=== PATIENT | male | born 1930 | race African-American/Black ===

== ENCOUNTER 2019-03-21 15:14 | Inpatient (IN) | payer MEDICARE, BC ==
[~2019-03-21] VITALS: Ht 172.7 cm; Wt 67.2 kg
[2019-03-21 23:39] LABS: HEMATOCRIT. 28.1 % (42.0-52.0); HEMOGLOBIN. 8.6 g/dL (14.0-18.0); MEAN CORPUSCULAR HEMOGLOBIN 25.6 pg (28.0-32.0); MEAN CORPUSCULAR VOLUME 83.4 fL (80.0-94.0); MEAN PLATELET VOLUME 7.2 fl (7.4-10.4); PLATELET 247 x1000/uL (130-400); RED BLOOD CELL COUNT 3.38 mill/uL (4.7-6.1); RED CELL DISTRIBUTION WIDTH 27.3 % (11.6-14.6)
[2019-03-21 23:45] LABS: CHLORIDE 118 mEq/L (98-107)
[2019-03-22 03:00] VITALS: BP 144/66
[2019-03-22 05:15] LABS: PLATELET ESTIMATE NORMAL
[2019-03-22 08:00] VITALS: BP 146/70
[2019-03-22] MEDS: FUROSEMIDE 40MG/4ML VIAL IVP SCH ×3 (08:11→21:00)
[2019-03-22] MEDS ORDERED: APIX5TAB PO (10:35)
[2019-03-22] MEDS ORDERED: FLUD0.1T PO (10:35)
[2019-03-22] MEDS ORDERED: PRIM50TA31 PO (10:35)
[2019-03-22] MEDS ORDERED: OMEP40CA12 PO (10:35)
[2019-03-22] MEDS ORDERED: FURO-151 PO (10:35)
[2019-03-22] MEDS ORDERED: AMLO5TAB88 PO (10:35)
[2019-03-22] MEDS ORDERED: FINA5TAB11 PO (10:35)
[2019-03-22] MEDS ORDERED: FOLI0.8T23 PO (10:35)
[2019-03-22] MEDS ORDERED: SITA50TA3 PO (10:35)
[2019-03-22] MEDS ORDERED: TAMS-11 PO (10:35)
[2019-03-22] MEDS ORDERED: ROSU5TAB PO (10:35)
[2019-03-22] MEDS ORDERED: LOPE2CAP PO (10:35)
[2019-03-22 12:00] VITALS: BP 143/70
[2019-03-22 13:40] LABS: INR 1.4; PROTHROMBIN TIME 13.9 sec (9.6-11.0)
[2019-03-22 14:00] LABS: TOTAL IRON BINDING CAPACITY 123 ug/dL (250-450)
[2019-03-22 16:00] VITALS: BP 144/63
[2019-03-22 20:00] VITALS: BP 139/67
[2019-03-22] MEDS: ATORVASTATIN CALCIUM 10MG TABLET PO SCH (20:59)
[2019-03-22] MEDS: EPOETIN ALFA 10000UNITS/ML VIAL SUBCUT SCH (20:59)
[2019-03-23] VITALS (8 sets, daily range): BP systolic 108–169; BP diastolic 36–70
[2019-03-23] MEDS: FUROSEMIDE 40MG/4ML VIAL IVP SCH ×3 (06:48→22:18)
[2019-03-23 07:28] LABS: HEMATOCRIT. 22.9 % (42.0-52.0); HEMOGLOBIN. 7.2 g/dL (14.0-18.0); MEAN CORPUSCULAR HEMOGLOBIN 25.3 pg (28.0-32.0); MEAN CORPUSCULAR VOLUME 80.7 fL (80.0-94.0); MEAN PLATELET VOLUME 7.9 fl (7.4-10.4); PLATELET 171 x1000/uL (130-400); RED BLOOD CELL COUNT 2.84 mill/uL (4.7-6.1); RED CELL DISTRIBUTION WIDTH 27.1 % (11.6-14.6)
[2019-03-23 07:49] LABS: PHOSPHORUS 1.9 mg/dL (2.5-4.9)
[2019-03-23 08:13] LABS: HEPATITIS B SURFACE ANTIGEN NEGATIVE
[2019-03-23] MEDS: FLUDROCORTISONE ACETATE 0.1MG TABLET PO SCH (08:50)
[2019-03-23] MEDS: AMLODIPINE 5MG TABLET PO SCH (08:51)
[2019-03-23] MEDS: FOLIC ACID/VITAMIN B COMP W-C TABLET PO SCH (08:51)
[2019-03-23] MEDS: TAMSULOSIN HCL 0.4MG SR CAPSULE PO SCH (08:51)
[2019-03-23] MEDS: FINASTERIDE 5MG TABLET PO SCH (08:51)
[2019-03-23] MEDS ORDERED: POTASSIUM-SODIUM PHOSPHATE POWDER PACKET PO SCH (12:30)
[2019-03-23] MEDS ORDERED: CALCIUM GLUCONATE 1,000 MG in DEXT 5% WATER 90 ML IV SCH (14:00)
[2019-03-23] MEDS ORDERED: MAGNESIUM 2 G PREMIX 50 ML IV SCH (14:00)
[2019-03-23] MEDS: MEGESTROL ACETATE 400 MG/10 ML UDC PO SCH (15:54)
[2019-03-23] MEDS: DEXT 5%/0.45% NACL 1000ML 1,000 ML IV SCH (15:55)
[2019-03-23] MEDS: ATORVASTATIN CALCIUM 10MG TABLET PO SCH (22:18)
[2019-03-24] VITALS: BP 129/68
[2019-03-24 04:00] VITALS: BP 123/69
[2019-03-24] MEDS: FUROSEMIDE 40MG/4ML VIAL IVP SCH ×3 (05:01→21:25)
[2019-03-24 05:54] LABS: BASOPHILS % 0.4 % (0.0-2.0); EOSINOPHILS % 0.8 % (0.0-5.0); HEMATOCRIT. 23.6 % (42.0-52.0); HEMOGLOBIN. 7.4 g/dL (14.0-18.0); MEAN CORPUSCULAR HEMOGLOBIN 25.5 pg (28.0-32.0); MONOCYTES % 10.2 % (2.0-8.0); NEUTROPHILS % 53.6 % (40.0-76.0); PLATELET 229 x1000/uL (130-400); RED BLOOD CELL COUNT 2.92 mill/uL (4.7-6.1); RED CELL DISTRIBUTION WIDTH 26.5 % (11.6-14.6)
[2019-03-24 08:00] VITALS: BP 147/69
[2019-03-24 08:15] LABS: PLATELET ESTIMATE NORMAL
[2019-03-24] MEDS: FINASTERIDE 5MG TABLET PO SCH (09:52)
[2019-03-24] MEDS: FOLIC ACID/VITAMIN B COMP W-C TABLET PO SCH (09:52)
[2019-03-24] MEDS: AMLODIPINE 5MG TABLET PO SCH (09:53)
[2019-03-24] MEDS: MEGESTROL ACETATE 400 MG/10 ML UDC PO SCH (09:53)
[2019-03-24] MEDS: FLUDROCORTISONE ACETATE 0.1MG TABLET PO SCH (09:53)
[2019-03-24] MEDS: TAMSULOSIN HCL 0.4MG SR CAPSULE PO SCH (09:54)
[2019-03-24 12:00] VITALS: BP 148/69
[2019-03-24] MEDS: LEVOFLOXACIN 250MG TABLET PO SCH (13:28)
[2019-03-24] MEDS: IRON SUCROSE COMPLEX 100 MG/5 ML ML IV SCH (13:28)
[2019-03-24 14:03] LABS: PLATELET ESTIMATE NORMAL
[2019-03-24 15:52] LABS: PHOSPHORUS 2.9 mg/dL (2.5-4.9)
[2019-03-24 17:08] VITALS: BP 141/66
[2019-03-24 20:00] VITALS: BP_SYST 119; BP_SYST 125; BP_DIAS 52; BP_DIAS 58
[2019-03-24] MEDS: ATORVASTATIN CALCIUM 10MG TABLET PO SCH (21:25)
[2019-03-25] VITALS: BP 119/58
[2019-03-25 04:00] VITALS: BP 124/55
[2019-03-25] MEDS: FUROSEMIDE 40MG/4ML VIAL IVP SCH ×3 (05:30→22:18)
[2019-03-25] MEDS: DEXT 5%/0.45% NACL 1000ML 1,000 ML IV SCH (05:30)
[2019-03-25 07:30] LABS: BASOPHILS % 0.1 % (0.0-2.0); HEMATOCRIT. 27.8 % (42.0-52.0); HEMOGLOBIN. 8.5 g/dL (14.0-18.0); LYMPHOCYTES % 27.5 % (20.0-50.0); MEAN CORPUSCULAR HEMOGLOBIN 24.8 pg (28.0-32.0); MEAN CORPUSCULAR VOLUME 81.6 fL (80.0-94.0); MEAN PLATELET VOLUME 7.9 fl (7.4-10.4); MONOCYTES % 8.1 % (2.0-8.0); NEUTROPHILS % 64.3 % (40.0-76.0); PLATELET 253 x1000/uL (130-400); RED BLOOD CELL COUNT 3.41 mill/uL (4.7-6.1); RED CELL DISTRIBUTION WIDTH 26.7 % (11.6-14.6)
[2019-03-25 08:01] VITALS: BP 158/76
[2019-03-25] MEDS: AMLODIPINE 5MG TABLET PO SCH (08:17)
[2019-03-25] MEDS: FOLIC ACID/VITAMIN B COMP W-C TABLET PO SCH (08:17)
[2019-03-25] MEDS: MEGESTROL ACETATE 400 MG/10 ML UDC PO SCH (08:17)
[2019-03-25] MEDS: FINASTERIDE 5MG TABLET PO SCH (08:17)
[2019-03-25] MEDS: IRON SUCROSE COMPLEX 100 MG/5 ML ML IV SCH (08:17)
[2019-03-25] MEDS: FLUDROCORTISONE ACETATE 0.1MG TABLET PO SCH (08:17)
[2019-03-25] MEDS: TAMSULOSIN HCL 0.4MG SR CAPSULE PO SCH (08:18)
[2019-03-25 12:00] VITALS: BP 136/67
[2019-03-25 16:00] VITALS: BP 113/57
[2019-03-25] MEDS ORDERED: ALBUMIN HUMAN 25GM/100ML (25%) IV NR (18:00)
[2019-03-25 20:00] VITALS: BP 113/65
[2019-03-25] MEDS: ATORVASTATIN CALCIUM 10MG TABLET PO SCH (22:18)
[2019-03-25] MEDS: EPOETIN ALFA 10000UNITS/ML VIAL SUBCUT SCH (22:18)
[2019-03-26] VITALS: BP 139/57
[2019-03-26 04:00] VITALS: BP_SYST 127; BP_SYST 134; BP_DIAS 56; BP_DIAS 61
[2019-03-26] MEDS: FUROSEMIDE 40MG/4ML VIAL IVP SCH ×3 (05:46→21:36)
[2019-03-26 08:00] VITALS: BP 147/65
[2019-03-26] MEDS: FLUDROCORTISONE ACETATE 0.1MG TABLET PO SCH (08:39)
[2019-03-26] MEDS: FINASTERIDE 5MG TABLET PO SCH (08:39)
[2019-03-26] MEDS: MEGESTROL ACETATE 400 MG/10 ML UDC PO SCH (08:39)
[2019-03-26] MEDS: FOLIC ACID/VITAMIN B COMP W-C TABLET PO SCH (08:39)
[2019-03-26] MEDS: IRON SUCROSE COMPLEX 100 MG/5 ML ML IV SCH (08:40)
[2019-03-26] MEDS: AMLODIPINE 5MG TABLET PO SCH (08:40)
[2019-03-26] MEDS: TAMSULOSIN HCL 0.4MG SR CAPSULE PO SCH (08:40)
[2019-03-26 10:57] LABS: BASOPHILS % 0.1 % (0.0-2.0); EOSINOPHILS % 0.1 % (0.0-5.0); HEMATOCRIT. 26.5 % (42.0-52.0); HEMOGLOBIN. 8.3 g/dL (14.0-18.0); LYMPHOCYTES % 29.3 % (20.0-50.0); MEAN CORPUSCULAR HEMOGLOBIN 25.6 pg (28.0-32.0); MEAN CORPUSCULAR VOLUME 81.6 fL (80.0-94.0); MEAN PLATELET VOLUME 7.5 fl (7.4-10.4); MONOCYTES % 10.8 % (2.0-8.0); NEUTROPHILS % 59.7 % (40.0-76.0); PLATELET 222 x1000/uL (130-400); RED BLOOD CELL COUNT 3.25 mill/uL (4.7-6.1); RED CELL DISTRIBUTION WIDTH 26.9 % (11.6-14.6)
[2019-03-26 11:38] LABS: PHOSPHORUS 2.5 mg/dL (2.5-4.9)
[2019-03-26 12:00] VITALS: BP 134/62
[2019-03-26] MEDS ORDERED: ALBUMIN HUMAN 25GM/100ML (25%) IV SCH (12:00)
[2019-03-26] MEDS: LEVOFLOXACIN 250MG TABLET PO SCH (13:51)
[2019-03-26] MEDS: DEXT 5%/0.45% NACL 1000ML 1,000 ML IV SCH (15:00)
[2019-03-26 16:00] VITALS: BP 129/60
[2019-03-26 20:00] VITALS: BP 149/66
[2019-03-26] MEDS: ATORVASTATIN CALCIUM 10MG TABLET PO SCH (21:36)
[2019-03-27] VITALS (7 sets, daily range): BP systolic 130–172; BP diastolic 62–86
[2019-03-27] MEDS: FUROSEMIDE 40MG/4ML VIAL IVP SCH ×3 (05:23→21:27)
[2019-03-27] MEDS: MEGESTROL ACETATE 400 MG/10 ML UDC PO SCH (10:03)
[2019-03-27] MEDS: AMLODIPINE 5MG TABLET PO SCH (10:04)
[2019-03-27] MEDS: FOLIC ACID/VITAMIN B COMP W-C TABLET PO SCH (10:04)
[2019-03-27] MEDS: FINASTERIDE 5MG TABLET PO SCH (10:04)
[2019-03-27] MEDS: TAMSULOSIN HCL 0.4MG SR CAPSULE PO SCH (10:04)
[2019-03-27] MEDS: FLUDROCORTISONE ACETATE 0.1MG TABLET PO SCH (10:05)
[2019-03-27] MEDS: DEXT 5%/0.45% NACL 1000ML 1,000 ML IV SCH (15:10)
[2019-03-27] MEDS: EPOETIN ALFA 10000UNITS/ML VIAL SUBCUT SCH (21:27)
[2019-03-27] MEDS: ATORVASTATIN CALCIUM 10MG TABLET PO SCH (21:28)
[2019-03-28] VITALS (7 sets, daily range): BP systolic 131–172; BP diastolic 65–89
[2019-03-28] MEDS: FUROSEMIDE 40MG/4ML VIAL IVP SCH ×3 (05:14→21:32)
[2019-03-28 07:37] LABS: BASOPHILS % 0.1 % (0.0-2.0); EOSINOPHILS % 0.4 % (0.0-5.0); HEMATOCRIT. 25.5 % (42.0-52.0); LYMPHOCYTES % 32.9 % (20.0-50.0); MEAN CORPUSCULAR HEMOGLOBIN 25.6 pg (28.0-32.0); MEAN CORPUSCULAR VOLUME 82.1 fL (80.0-94.0); MEAN PLATELET VOLUME 7.8 fl (7.4-10.4); MONOCYTES % 12.4 % (2.0-8.0); NEUTROPHILS % 54.2 % (40.0-76.0); PLATELET 211 x1000/uL (130-400); RED CELL DISTRIBUTION WIDTH 26.3 % (11.6-14.6)
[2019-03-28] MEDS: FLUDROCORTISONE ACETATE 0.1MG TABLET PO SCH (08:59)
[2019-03-28] MEDS: TAMSULOSIN HCL 0.4MG SR CAPSULE PO SCH (08:59)
[2019-03-28] MEDS: FINASTERIDE 5MG TABLET PO SCH (08:59)
[2019-03-28] MEDS: AMLODIPINE 5MG TABLET PO SCH (08:59)
[2019-03-28] MEDS: FOLIC ACID/VITAMIN B COMP W-C TABLET PO SCH (09:00)
[2019-03-28] MEDS: MEGESTROL ACETATE 400 MG/10 ML UDC PO SCH (09:00)
[2019-03-28] MEDS ORDERED: KETOROLAC 15MG/ML VIAL IV PRN (10:45)
[2019-03-28] MEDS: LEVOFLOXACIN 250MG TABLET PO SCH (13:55)
[2019-03-28] MEDS ORDERED: ONDANSETRON HCL 4MG/2ML INJ IV PRN (15:45)
[2019-03-28] MEDS ORDERED: HYDROCODONE/ACETAMINOPHEN 5/325MG TABLET PO PRN (15:45)
[2019-03-28] MEDS ORDERED: ACETAMINOPHEN 325MG TABLET PO PRN (15:45)
[2019-03-28] MEDS ORDERED: LORAZEPAM 2MG/ML CPJ IV PRN (15:45)
[2019-03-28] MEDS ORDERED: DIPHENHYDRAMINE 50MG/ML VIAL IV PRN (15:45)
[2019-03-28] MEDS ORDERED: BISACODYL 10MG SUPP PR PRN (15:45)
[2019-03-28] MEDS ORDERED: IPRATROPIUM/ALBUTEROL 0.5-3(2.5)MG/3ML NEB HHN PRN (15:45)
[2019-03-28] MEDS ORDERED: ACETAMINOPHEN 650MG SUPP PR PRN (15:45)
[2019-03-28] MEDS: ATORVASTATIN CALCIUM 10MG TABLET PO SCH (21:32)
[2019-03-29] VITALS (9 sets, daily range): BP systolic 102–150; BP diastolic 30–70
[2019-03-29] MEDS: DEXT 5%/0.45% NACL 1000ML 1,000 ML IV SCH (00:18)
[2019-03-29] MEDS: FUROSEMIDE 40MG/4ML VIAL IVP SCH ×3 (05:38→22:00)
[2019-03-29] MEDS: AMLODIPINE 5MG TABLET PO SCH (09:00)
[2019-03-29] MEDS: FLUDROCORTISONE ACETATE 0.1MG TABLET PO SCH (09:19)
[2019-03-29] MEDS: TAMSULOSIN HCL 0.4MG SR CAPSULE PO SCH (09:19)
[2019-03-29] MEDS: MEGESTROL ACETATE 400 MG/10 ML UDC PO SCH (09:19)
[2019-03-29] MEDS: FOLIC ACID/VITAMIN B COMP W-C TABLET PO SCH (09:19)
[2019-03-29] MEDS: FINASTERIDE 5MG TABLET PO SCH (09:19)
[2019-03-29] MEDS ORDERED: BISACODYL 10MG SUPP PR SCH (13:00)
[2019-03-29] MEDS ORDERED: FUROSEMIDE 40MG/4ML VIAL IVP ONE (13:15)
[2019-03-29] MEDS ORDERED: IPRATROPIUM/ALBUTEROL 0.5-3(2.5)MG/3ML NEB HHN ONE (13:15)
[2019-03-29 13:45] LABS: BG BASE EXCESS -2.4 mmol/L (-2.0-2.0); BG CARBOXYHEMOGLOBIN 1.1 % (0.5-1.5); BG DEOXYHEMOGLOBIN 6.3 % (0.0-5.0); BG FRACTION INSPIRED OXYGEN 21; BG HCO3 ACT 23.2 mmol/L (22.0-26.0); BG METHEMOGLOBIN 0.2 % (0.0-1.5); BG OXYGEN SATURATION 93.6 % (92.0-98.5); BG OXYHEMOGLOBIN 92.4 % (94.0-97.0); BG PCO2 43.9 mmHg (35.0-45.0); BG PH 7.341 (7.350-7.450); BG PO2 69.5 mmHg (75.0-100.0); BG SAMPLE SITE RIGHT RADIAL; BG TOTAL HEMOGLOBIN 8.3 g/dL (12.0-18.0); BG VENT MODE ROOM AIR
[2019-03-29 14:22] LABS: BASOPHILS % 0.3 % (0.0-2.0); EOSINOPHILS % 0.4 % (0.0-5.0); HEMATOCRIT. 26.3 % (42.0-52.0); HEMOGLOBIN. 8.1 g/dL (14.0-18.0); LYMPHOCYTES % 30.9 % (20.0-50.0); MEAN CORPUSCULAR HEMOGLOBIN 25.7 pg (28.0-32.0); MEAN CORPUSCULAR VOLUME 83.7 fL (80.0-94.0); MONOCYTES % 11.9 % (2.0-8.0); NEUTROPHILS % 56.5 % (40.0-76.0); PLATELET 207 x1000/uL (130-400); RED BLOOD CELL COUNT 3.14 mill/uL (4.7-6.1); RED CELL DISTRIBUTION WIDTH 26.2 % (11.6-14.6)
[2019-03-29 14:32] LABS: CHLORIDE 112 mEq/L (98-107)
[2019-03-29] MEDS ORDERED: LEVOFLOXACIN 500MG PREMIX 100 ML IV SCH (14:45)
[2019-03-29] MEDS ORDERED: DEXTROSE 50% WATER 50ML SYRINGE IV PRN (14:45)
[2019-03-29] MEDS: BLOOD SUGAR DIAGNOSTIC STRIP TEST SCH ×2 (17:41→21:00)
[2019-03-29] MEDS: LEVOFLOXACIN 250MG PREMIX 50 ML IV SCH (18:06)
[2019-03-29] MEDS ORDERED: ALBUMIN HUMAN 25GM/100ML (25%) IV NR (23:00)
[2019-03-30] VITALS (13 sets, daily range): BP systolic 114–143; BP diastolic 54–78
[2019-03-30] MEDS: EPOETIN ALFA 10000UNITS/ML VIAL SUBCUT SCH (01:36)
[2019-03-30] MEDS: ATORVASTATIN CALCIUM 10MG TABLET PO SCH ×2 (01:36→21:24)
[2019-03-30] MEDS: BLOOD SUGAR DIAGNOSTIC STRIP TEST SCH ×4 (06:41→20:38)
[2019-03-30] MEDS: FUROSEMIDE 40MG/4ML VIAL IVP SCH ×3 (06:43→21:24)
[2019-03-30 07:03] LABS: BASOPHILS % 0.1 % (0.0-2.0); EOSINOPHILS % 0.5 % (0.0-5.0); HEMATOCRIT. 22.6 % (42.0-52.0); LYMPHOCYTES % 28.1 % (20.0-50.0); MEAN CORPUSCULAR HEMOGLOBIN 25.5 pg (28.0-32.0); MEAN CORPUSCULAR VOLUME 83.5 fL (80.0-94.0); MEAN PLATELET VOLUME 8.2 fl (7.4-10.4); MONOCYTES % 9.6 % (2.0-8.0); NEUTROPHILS % 61.7 % (40.0-76.0); PLATELET 179 x1000/uL (130-400); RED CELL DISTRIBUTION WIDTH 26.6 % (11.6-14.6)
[2019-03-30 07:08] LABS: INR 1.3; PROTHROMBIN TIME 13.3 sec (9.6-11.0)
[2019-03-30 07:14] LABS: HEMOGLOBIN. 6.9 g/dL (14.0-18.0)
[2019-03-30 07:29] LABS: T4 FREE 0.93 ng/dL (0.76-1.46)
[2019-03-30] MEDS: MEGESTROL ACETATE 400 MG/10 ML UDC PO SCH (08:37)
[2019-03-30] MEDS: TAMSULOSIN HCL 0.4MG SR CAPSULE PO SCH (08:39)
[2019-03-30] MEDS: FLUDROCORTISONE ACETATE 0.1MG TABLET PO SCH (08:39)
[2019-03-30] MEDS: FINASTERIDE 5MG TABLET PO SCH (08:39)
[2019-03-30] MEDS: AMLODIPINE 5MG TABLET PO SCH (08:39)
[2019-03-30] MEDS: FOLIC ACID/VITAMIN B COMP W-C TABLET PO SCH (08:40)
[2019-03-30] MEDS ORDERED: POTASSIUM CHLORIDE INJ 40 MEQ in DEXT 5% WATER 250 ML IV NR (11:30)
[2019-03-30 14:48] LABS: BG BASE EXCESS 3.8 mmol/L (-2.0-2.0); BG CARBOXYHEMOGLOBIN 0.4 % (0.5-1.5); BG DEOXYHEMOGLOBIN 1.7 % (0.0-5.0); BG FRACTION INSPIRED OXYGEN 28; BG HCO3 ACT 29.5 mmol/L (22.0-26.0); BG METHEMOGLOBIN 0.1 % (0.0-1.5); BG OXYGEN SATURATION 98.3 % (92.0-98.5); BG OXYHEMOGLOBIN 97.8 % (94.0-97.0); BG PCO2 51.2 mmHg (35.0-45.0); BG PH 7.379 (7.350-7.450); BG PO2 113.9 mmHg (75.0-100.0); BG SAMPLE SITE RIGHT RADIAL; BG TOTAL HEMOGLOBIN 8.6 g/dL (12.0-18.0); BG VENT MODE NASAL CANNULA
[2019-03-30] MEDS: LEVOFLOXACIN 250MG PREMIX 50 ML IV SCH (15:17)
[2019-03-30 17:42] LABS: HEMATOCRIT 27.4 % (42.0-52.0); HEMOGLOBIN 8.8 g/dL (14.0-18.0)
[2019-03-31] VITALS (12 sets, daily range): BP systolic 124–148; BP diastolic 63–95
[2019-03-31] MEDS: FUROSEMIDE 40MG/4ML VIAL IVP SCH ×3 (06:19→22:22)
[2019-03-31] MEDS: BLOOD SUGAR DIAGNOSTIC STRIP TEST SCH ×4 (06:44→20:47)
[2019-03-31] MEDS: MEGESTROL ACETATE 400 MG/10 ML UDC PO SCH (08:37)
[2019-03-31] MEDS: AMLODIPINE 5MG TABLET PO SCH (08:38)
[2019-03-31] MEDS: FOLIC ACID/VITAMIN B COMP W-C TABLET PO SCH (08:38)
[2019-03-31] MEDS: FLUDROCORTISONE ACETATE 0.1MG TABLET PO SCH (08:38)
[2019-03-31] MEDS: FINASTERIDE 5MG TABLET PO SCH (08:38)
[2019-03-31] MEDS: TAMSULOSIN HCL 0.4MG SR CAPSULE PO SCH (08:38)
[2019-03-31 08:42] LABS: BASOPHILS % 0.2 % (0.0-2.0); EOSINOPHILS % 0.6 % (0.0-5.0); HEMATOCRIT. 26.7 % (42.0-52.0); HEMOGLOBIN. 8.7 g/dL (14.0-18.0); LYMPHOCYTES % 29.9 % (20.0-50.0); MEAN CORPUSCULAR HEMOGLOBIN 27.1 pg (28.0-32.0); MEAN CORPUSCULAR VOLUME 83.8 fL (80.0-94.0); MEAN PLATELET VOLUME 7.7 fl (7.4-10.4); MONOCYTES % 7.5 % (2.0-8.0); NEUTROPHILS % 61.8 % (40.0-76.0); PLATELET 189 x1000/uL (130-400); RED BLOOD CELL COUNT 3.19 mill/uL (4.7-6.1); RED CELL DISTRIBUTION WIDTH 23.1 % (11.6-14.6)
[2019-03-31] MEDS: LEVOFLOXACIN 250MG PREMIX 50 ML IV SCH (11:30)
[2019-03-31] MEDS: ATORVASTATIN CALCIUM 10MG TABLET PO SCH (20:47)
[2019-04-01] VITALS (13 sets, daily range): BP systolic 114–147; BP diastolic 63–89
[2019-04-01] MEDS: FUROSEMIDE 40MG/4ML VIAL IVP SCH ×3 (06:29→21:38)
[2019-04-01 06:40] LABS: HEMOGLOBIN 9.3 g/dL (14.0-18.0); MEAN CORPUSCULAR HEMOGLOBIN 26.3 pg (28.0-32.0); MEAN CORPUSCULAR VOLUME 84.7 fL (80.0-94.0); PLATELET 196 x1000/uL (130-400); RED BLOOD CELL COUNT 3.54 mill/uL (4.7-6.1); RED CELL DISTRIBUTION WIDTH 23.7 % (11.6-14.6)
[2019-04-01] MEDS: BLOOD SUGAR DIAGNOSTIC STRIP TEST SCH ×4 (07:28→20:57)
[2019-04-01] MEDS: AMLODIPINE 5MG TABLET PO SCH (08:21)
[2019-04-01] MEDS: FOLIC ACID/VITAMIN B COMP W-C TABLET PO SCH (08:21)
[2019-04-01] MEDS: FINASTERIDE 5MG TABLET PO SCH (08:21)
[2019-04-01] MEDS: FLUDROCORTISONE ACETATE 0.1MG TABLET PO SCH (08:21)
[2019-04-01] MEDS: TAMSULOSIN HCL 0.4MG SR CAPSULE PO SCH (08:21)
[2019-04-01] MEDS: MEGESTROL ACETATE 400 MG/10 ML UDC PO SCH (08:22)
[2019-04-01] MEDS: LEVOFLOXACIN 250MG PREMIX 50 ML IV SCH (13:22)
[2019-04-01] MEDS: ATORVASTATIN CALCIUM 10MG TABLET PO SCH (20:51)
[2019-04-01] MEDS: EPOETIN ALFA 10000UNITS/ML VIAL SUBCUT SCH (21:37)
[2019-04-02] VITALS: BP 120/58
== END 2019-04-02 00:11 | DRG 682 ==
LOC: ER 15:14 → 7WST 20:40 → ENRESERV 21:50 → UNDODISIN 03-26 18:14 → 3WST 03-29 15:03
PROVIDERS: ADMIT Internal Medicine; ATTEND Internal Medicine
PROC: 5A1D70Z Performance of Urinary Filtration, Intermittent, Less than 6 Hours Per Day (ICD-10-PCS; 2019-03-22)
PROC: 05HY33Z Insertion of Infusion Device into Upper Vein, Percutaneous Approach (ICD-10-PCS; 2019-03-22)
PROC: B54MZZZ Ultrasonography of Right Upper Extremity Veins (ICD-10-PCS; 2019-03-22)
PROC: B51M1ZZ Fluoroscopy of Right Upper Extremity Veins using Low Osmolar Contrast (ICD-10-PCS; 2019-03-22)
PROC: 5A1D70Z Performance of Urinary Filtration, Intermittent, Less than 6 Hours Per Day (ICD-10-PCS; 2019-03-25)
PROC: 5A1D70Z Performance of Urinary Filtration, Intermittent, Less than 6 Hours Per Day (ICD-10-PCS; 2019-03-26)
PROC: 5A1D70Z Performance of Urinary Filtration, Intermittent, Less than 6 Hours Per Day (ICD-10-PCS; 2019-03-28)
PROC: 30233N1 Transfusion of Nonautologous Red Blood Cells into Peripheral Vein, Percutaneous Approach (ICD-10-PCS; principal; 2019-03-30)
PROC: 5A1D70Z Performance of Urinary Filtration, Intermittent, Less than 6 Hours Per Day (ICD-10-PCS; 2019-04-01)
DX: N17.9 Acute kidney failure, unspecified (principal); E43 Unspecified severe protein-calorie malnutrition; I13.2 Hypertensive heart and chronic kidney disease with heart failure and with stage 5 chronic kidney disease, or end stage renal disease; I50.30 Unspecified diastolic (congestive) heart failure; E87.2 Acidosis; R64 Cachexia; D68.9 Coagulation defect, unspecified; N18.6 End stage renal disease; R62.7 Adult failure to thrive; E11.22 Type 2 diabetes mellitus with diabetic chronic kidney disease; E11.649 Type 2 diabetes mellitus with hypoglycemia without coma; E03.9 Hypothyroidism, unspecified; E78.5 Hyperlipidemia, unspecified; E87.8 Other disorders of electrolyte and fluid balance, not elsewhere classified; E83.39 Other disorders of phosphorus metabolism; F03.90 Unspecified dementia, unspecified severity, without behavioral disturbance, psychotic disturbance, mood disturbance, and anxiety; I95.3 Hypotension of hemodialysis; J44.9 Chronic obstructive pulmonary disease, unspecified; E87.6 Hypokalemia; D63.8 Anemia in other chronic diseases classified elsewhere; E04.1 Nontoxic single thyroid nodule; K76.0 Fatty (change of) liver, not elsewhere classified; E83.42 Hypomagnesemia; N40.0 Benign prostatic hyperplasia without lower urinary tract symptoms; Z85.028 Personal history of other malignant neoplasm of stomach; Z86.718 Personal history of other venous thrombosis and embolism; Z95.2 Presence of prosthetic heart valve; Z99.2 Dependence on renal dialysis; Z79.899 Other long term (current) drug therapy; Z88.0 Allergy status to penicillin; Z68.22 Body mass index [BMI] 22.0-22.9, adult
CPT/HCPCS: 36415; 36556; 36600; 70490; 71045; 74018; 74176; 76700; 76937; 77001; 80048; 80053; 80076; 82140; 82270; 82375; 82728; 82805; 82962; 83540; 83550; 83735; 83970; 84100; 84439; 84443; 84481; 84484; 85014; 85018; 85025; 85027; 86803; 86850; 86900; 86920; 87070; 87077; 87186; 87340; 92610; 93005; 93970; 93971; 97162; 97530; 99285; C1752; C1769; J0610; J0885; J1940; J1956; J3475; J3480; J7060; P9016; P9047